=== PATIENT | female | born 1970 | race Two or more races ===

== ENCOUNTER 2019-11-25 09:37 | Emergency (ER) | payer OTHER, SELFPAY ==
[~2019-11-25] VITALS: Ht 154.9 cm; Wt 76.5 kg
[2019-11-25 09:52] VITALS: BP 132/83
--- NOTE | 2019-11-25 12:07 | NUR ---
TASK RN: PT C/O LOVELL X1 WEEK, AND COUGH X2 WEEKS. PLACED CALL LIGHT WITHIN REACH, DAUGHTER AT BEDSIDE.
[2019-11-25] MEDS ORDERED: KETOROLAC 30 MG/1 ML ONE (12:11)
[2019-11-25] MEDS ORDERED: ONDANSETRON ODT 4 MG ONE (12:11)
[2019-11-25] MEDS ORDERED: ONDANSETRON ODT 4 MG PO ONE (12:30)
[2019-11-25] MEDS ORDERED: KETOROLAC 30 MG/1 ML IM ONE (12:30)
== END 2019-11-25 13:18 | disposition home or self-care (01) ==
LOC: ED 12:10
DX: B34.9 Viral infection, unspecified (principal); Z20.828 Contact with and (suspected) exposure to other viral communicable diseases; R50.9 Fever, unspecified; R05 Cough; R09.81 Nasal congestion; M79.10 Myalgia, unspecified site; R94.31 Abnormal electrocardiogram [ECG] [EKG]; G43.909 Migraine, unspecified, not intractable, without status migrainosus
CPT/HCPCS: 36415; 71045; 87635; 93005; 96372; 99285; J1885; Q0162